=== PATIENT | male | born 1980 | race African-American/Black ===

== ENCOUNTER 2019-11-10 21:05 | Inpatient (IN) | payer BC, OTHER ==
[~2019-11-10] VITALS: Ht 172.7 cm; Wt 98.4 kg
[2019-11-10] MEDS ORDERED: SODIUM CHLORIDE 0.9% 1,000 ML IV ONE ×4 (22:39→23:22)
[2019-11-10] MEDS ORDERED: FAMOTIDINE 20MG/2ML VIAL IV STA (22:59)
[2019-11-10] MEDS ORDERED: ONDANSETRON HCL 4MG/2ML INJ IV STA (22:59)
[2019-11-10 23:18] LABS: BG BASE EXCESS -15.1 mmol/L (-2.0-2.0); BG CARBOXYHEMOGLOBIN 0.6 % (0.5-1.5); BG DEOXYHEMOGLOBIN 2.1 % (0.0-5.0); BG FRACTION INSPIRED OXYGEN 21; BG HCO3 ACT 9.2 mmol/L (22.0-26.0); BG METHEMOGLOBIN 0.1 % (0.0-1.5); BG OXYGEN SATURATION 97.9 % (92.0-98.5); BG OXYHEMOGLOBIN 97.2 % (94.0-97.0); BG PCO2 20.2 mmHg (35.0-45.0); BG PH 7.276 (7.350-7.450); BG PO2 108.7 mmHg (75.0-100.0); BG SAMPLE SITE RIGHT RADIAL; BG TOTAL HEMOGLOBIN 15.4 g/dL (12.0-18.0); BG VENT MODE ROOM AIR
[2019-11-10 23:22] LABS: BASOPHILS % 0.4 % (0.0-2.0); HEMATOCRIT. 46.8 % (42.0-52.0); HEMOGLOBIN. 15.3 g/dL (14.0-18.0); LYMPHOCYTES % 19.9 % (20.0-50.0); MEAN CORPUSCULAR HEMOGLOBIN 29.9 pg (28.0-32.0); MEAN CORPUSCULAR VOLUME 91.1 fL (80.0-94.0); MEAN PLATELET VOLUME 7.7 fl (7.4-10.4); MONOCYTES % 8.5 % (2.0-8.0); NEUTROPHILS % 71.2 % (40.0-76.0); PLATELET 266 x1000/uL (130-400); RED BLOOD CELL COUNT 5.14 mill/uL (4.7-6.1); RED CELL DISTRIBUTION WIDTH 14.4 % (11.6-14.6)
[2019-11-10 23:25] LABS: CLARITY URINE CLEAR (CLEAR); COLOR URINE YELLOW (YELLOW); KETONES URINE 4+ (NEGATIVE); LEUKOCYTE ESTERASE URINE NEGATIVE (NEGATIVE); NITRITE URINE NEGATIVE (NEGATIVE); OCCULT BLOOD URINE TRACE (NEGATIVE); PROTEIN URINE 1+ (NEGATIVE); SPECIFIC GRAVITY URINE 1.038 (1.005-1.030); UROBILINOGEN URINE 0.2 E.U./dL (0.2-1.0)
[2019-11-10] MEDS ORDERED: INSULIN REGULAR (DRIP) 100 UNITS in SODIUM CHLORIDE 0.9% 99 ML IV SCH (23:30)
[2019-11-10 23:31] LABS: CHLORIDE 104 mEq/L (98-107)
[2019-11-10 23:35] LABS: ETHANOL BLOOD < 10 mg/dL
[2019-11-10 23:38] LABS: *BARBITURATES SCREEN URINE NEGATIVE (NEGATIVE); *BENZODIAZEPINES SCREEN URINE NEGATIVE (NEGATIVE); *COCAINE SCREEN URINE NEGATIVE (NEGATIVE); METHADONE URINE SCREEN NEGATIVE (NEGATIVE)
[2019-11-10 23:39] LABS: *AMPHETAMINES SCREEN URINE NEGATIVE (NEGATIVE); BETA HYDROXYBUTYRATE 8.9 mMol/L (0.0-0.3); CANNABINOID URINE SCREEN NEGATIVE (NEGATIVE); OPIATES URINE SCREEN NEGATIVE (NEGATIVE); PHENCYCLIDINE URINE SCREEN NEGATIVE (NEGATIVE)
[2019-11-11] MEDS ORDERED: SODIUM CHLORIDE 0.9% 1,000 ML IV ONE (03:18)
[2019-11-11] MEDS ORDERED: DEXTROSE 5% WATER 1,000 ML IV ONE (03:18)
[2019-11-11 04:59] LABS: CHLORIDE 113 mEq/L (98-107)
[2019-11-11] MEDS ORDERED: POTASSIUM CHLORIDE 20MEQ TABLET SR PO ONE (05:45)
[2019-11-11 06:26] LABS: CHLORIDE 113 mEq/L (98-107)
[2019-11-11] MEDS ORDERED: NA PHOS,M-B/NA PHOS,DI-BA ENEMA 118ML PR PRN (07:15)
[2019-11-11] MEDS ORDERED: DIPHENHYDRAMINE 50MG/ML VIAL IV PRN (07:15)
[2019-11-11] MEDS ORDERED: BLOOD SUGAR DIAGNOSTIC STRIP TEST SCH (07:15)
[2019-11-11] MEDS ORDERED: DEXTROSE 50% WATER 50ML SYRINGE IV PRN ×3 (07:15)
[2019-11-11] MEDS ORDERED: IPRATROPIUM/ALBUTEROL 0.5-3(2.5)MG/3ML NEB NEB PRN (07:15)
[2019-11-11] MEDS ORDERED: ACETAMINOPHEN 325MG TABLET PO PRN (07:15)
[2019-11-11] MEDS ORDERED: MAGNESIUM/ALUMINUM HYDROXIDE/SIMETHICONE 30ML UDC PO PRN (07:15)
[2019-11-11] MEDS ORDERED: GUAIFENESIN 200MG/10ML SUGAR FREE UDC PO PRN (07:15)
[2019-11-11] MEDS ORDERED: LORAZEPAM 2MG/ML CPJ IV PRN (07:15)
[2019-11-11] MEDS ORDERED: DOCUSATE SODIUM 100MG CAPSULE PO PRN (07:15)
[2019-11-11 08:59] LABS: BG BASE EXCESS -8.6 mmol/L (-2.0-2.0); BG CARBOXYHEMOGLOBIN 0.6 % (0.5-1.5); BG DEOXYHEMOGLOBIN 1.8 % (0.0-5.0); BG FRACTION INSPIRED OXYGEN 21; BG HCO3 ACT 16.8 mmol/L (22.0-26.0); BG METHEMOGLOBIN 0.1 % (0.0-1.5); BG OXYGEN SATURATION 98.2 % (92.0-98.5); BG OXYHEMOGLOBIN 97.5 % (94.0-97.0); BG PCO2 34.4 mmHg (35.0-45.0); BG PH 7.306 (7.350-7.450); BG PO2 124.9 mmHg (75.0-100.0); BG SAMPLE SITE LEFT RADIAL; BG TOTAL HEMOGLOBIN 13.4 g/dL (12.0-18.0); BG VENT MODE ROOM AIR
[2019-11-11] MEDS ORDERED: FAMOTIDINE 20MG/2ML VIAL IV SCH (09:00)
[2019-11-11 09:16] LABS: CHLORIDE 113 mEq/L (98-107)
[2019-11-11] MEDS ORDERED: HYDRALAZINE 20MG/ML VIAL IV PRN (11:30)
[2019-11-11] MEDS: SODIUM CHLORIDE 0.45% 1,000 ML IV SCH (11:48)
[2019-11-11] MEDS: ONDANSETRON HCL 4MG/2ML INJ IV PRN ×2 (11:54→18:55)
[2019-11-11] MEDS: MORPHINE SULFATE 2 MG/ML CPJ (NOT FOR IM USE) IV PRN ×2 (11:56→18:55)
[2019-11-11 12:37] LABS: CHLORIDE 109 mEq/L (98-107)
[2019-11-11] MEDS: FAMOTIDINE 20MG/2ML VIAL IV SCH (14:38)
[2019-11-11] MEDS: CLONIDINE 0.1MG TABLET PO PRN (19:00)
[2019-11-11 19:26] LABS: CHLORIDE 105 mEq/L (98-107)
[2019-11-11 19:35] LABS: CREATINE KINASE 172 IU/L (39-308)
[2019-11-12] VITALS (65 sets, daily range): BP systolic 126–186; BP diastolic 76–117
[2019-11-12] MEDS: MORPHINE SULFATE 2 MG/ML CPJ (NOT FOR IM USE) IV PRN ×3 (00:29→12:24)
[2019-11-12] MEDS: SODIUM CHLORIDE 0.45% 1,000 ML IV SCH ×4 (01:04→19:39)
[2019-11-12 02:46] LABS: CHLORIDE 102 mEq/L (98-107)
[2019-11-12] MEDS ORDERED: DEXTROSE 50% WATER 50ML SYRINGE IV PRN ×3 (04:45→08:30)
[2019-11-12] MEDS: ONDANSETRON HCL 4MG/2ML INJ IV PRN (04:59)
[2019-11-12] MEDS: BLOOD SUGAR DIAGNOSTIC STRIP TEST SCH ×8 (05:00→21:02)
[2019-11-12] MEDS ORDERED: INSULIN REGULAR (DRIP) 100 UNITS in SODIUM CHLORIDE 0.9% 100 ML IV SCH (05:00)
[2019-11-12] MEDS: CLONIDINE 0.1MG TABLET PO PRN (05:29)
[2019-11-12 06:05] LABS: BASOPHILS % 0.3 % (0.0-2.0); EOSINOPHILS % 0.1 % (0.0-5.0); HEMOGLOBIN. 14.2 g/dL (14.0-18.0); MEAN CORPUSCULAR HEMOGLOBIN 29.8 pg (28.0-32.0); MEAN CORPUSCULAR VOLUME 88.1 fL (80.0-94.0); MEAN PLATELET VOLUME 7.6 fl (7.4-10.4); NEUTROPHILS % 52.6 % (40.0-76.0); PLATELET 231 x1000/uL (130-400); RED BLOOD CELL COUNT 4.76 mill/uL (4.7-6.1); RED CELL DISTRIBUTION WIDTH 13.9 % (11.6-14.6)
[2019-11-12 06:07] LABS: CHLORIDE 101 mEq/L (98-107)
[2019-11-12 06:22] LABS: LDL CHOLESTEROL 76 mg/dL (5-100)
[2019-11-12 06:24] LABS: CREATINE KINASE 134 IU/L (39-308); HDL CHOLESTEROL 60 mg/dL (40-59)
[2019-11-12] MEDS: SODIUM CHLORIDE 0.9% INJ 3ML FLUSH IVF SCH ×3 (06:33→22:25)
[2019-11-12] MEDS: INSULIN LISPRO 100 UNITS/ML SUBCUT SCH ×4 (08:20→21:02)
[2019-11-12] MEDS ORDERED: POTASSIUM CHLORIDE 20MEQ TABLET SR PO NR (08:30)
[2019-11-12] MEDS: ENOXAPARIN 30MG/0.3ML SYR SUBCUT SCH ×2 (09:07→20:43)
[2019-11-12] MEDS: FAMOTIDINE 20MG/2ML VIAL IV SCH ×2 (09:07→20:43)
[2019-11-12] MEDS: HYDRALAZINE 20MG/ML VIAL IV PRN ×2 (09:56→16:33)
[2019-11-12] MEDS: AMLODIPINE 5MG TABLET PO SCH (12:23)
[2019-11-12] MEDS: HYDROCODONE/ACETAMINOPHEN 10/325MG TABLET PO PRN (21:00)
[2019-11-13] VITALS (24 sets, daily range): BP systolic 112–169; BP diastolic 70–107
[2019-11-13] MEDS: SODIUM CHLORIDE 0.45% 1,000 ML IV SCH ×2 (04:51→21:24)
[2019-11-13] MEDS: SODIUM CHLORIDE 0.9% INJ 3ML FLUSH IVF SCH ×3 (05:15→21:05)
[2019-11-13] MEDS: HYDROCODONE/ACETAMINOPHEN 10/325MG TABLET PO PRN ×2 (06:25→21:28)
[2019-11-13 06:44] LABS: BASOPHILS % 0.1 % (0.0-2.0); CHLORIDE 100 mEq/L (98-107); EOSINOPHILS % 0.2 % (0.0-5.0); HEMATOCRIT. 43.8 % (42.0-52.0); HEMOGLOBIN. 14.5 g/dL (14.0-18.0); MEAN CORPUSCULAR HEMOGLOBIN 29.5 pg (28.0-32.0); MEAN CORPUSCULAR VOLUME 88.9 fL (80.0-94.0); NEUTROPHILS % 39.7 % (40.0-76.0); PLATELET 231 x1000/uL (130-400); RED BLOOD CELL COUNT 4.92 mill/uL (4.7-6.1); RED CELL DISTRIBUTION WIDTH 13.9 % (11.6-14.6)
[2019-11-13] MEDS: AMLODIPINE 5MG TABLET PO SCH (08:29)
[2019-11-13] MEDS: FAMOTIDINE 20MG/2ML VIAL IV SCH ×2 (08:29→21:04)
[2019-11-13] MEDS: ENOXAPARIN 30MG/0.3ML SYR SUBCUT SCH ×2 (08:29→21:24)
[2019-11-13] MEDS: INSULIN LISPRO 100 UNITS/ML SUBCUT SCH ×4 (08:30→21:25)
[2019-11-13] MEDS: BLOOD SUGAR DIAGNOSTIC STRIP TEST SCH ×4 (08:30→20:53)
[2019-11-13] MEDS ORDERED: POTASSIUM CHLORIDE 20MEQ TABLET SR PO NR (08:45)
[2019-11-13] MEDS: MORPHINE SULFATE 2 MG/ML CPJ (NOT FOR IM USE) IV PRN (17:04)
[2019-11-14] VITALS: BP 127/74
[2019-11-14 04:00] VITALS: BP 137/74
[2019-11-14] MEDS: BLOOD SUGAR DIAGNOSTIC STRIP TEST SCH ×4 (06:05→21:49)
[2019-11-14] MEDS: SODIUM CHLORIDE 0.45% 1,000 ML IV SCH ×2 (06:38→21:51)
[2019-11-14] MEDS: SODIUM CHLORIDE 0.9% INJ 3ML FLUSH IVF SCH ×3 (06:40→21:49)
[2019-11-14] MEDS: INSULIN LISPRO 100 UNITS/ML SUBCUT SCH ×4 (06:40→21:56)
[2019-11-14 07:42] LABS: CHLORIDE 100 mEq/L (98-107)
[2019-11-14 07:45] LABS: BASOPHILS % 0.4 % (0.0-2.0); EOSINOPHILS % 0.7 % (0.0-5.0); HEMATOCRIT. 42.5 % (42.0-52.0); HEMOGLOBIN. 14.2 g/dL (14.0-18.0); LYMPHOCYTES % 54.7 % (20.0-50.0); MEAN CORPUSCULAR HEMOGLOBIN 29.6 pg (28.0-32.0); MEAN CORPUSCULAR VOLUME 88.8 fL (80.0-94.0); MEAN PLATELET VOLUME 7.9 fl (7.4-10.4); MONOCYTES % 12.3 % (2.0-8.0); NEUTROPHILS % 31.9 % (40.0-76.0); PLATELET 233 x1000/uL (130-400); RED BLOOD CELL COUNT 4.78 mill/uL (4.7-6.1)
[2019-11-14 08:00] VITALS: BP 158/104
[2019-11-14] MEDS: FAMOTIDINE 20MG/2ML VIAL IV SCH ×2 (09:57→21:49)
[2019-11-14] MEDS: AMLODIPINE 10MG TABLET PO SCH (09:58)
[2019-11-14] MEDS: ENOXAPARIN 30MG/0.3ML SYR SUBCUT SCH ×2 (09:59→21:50)
[2019-11-14 12:00] VITALS: BP 152/94
[2019-11-14 17:01] VITALS: BP 107/70
[2019-11-14 20:00] VITALS: BP 128/80
[2019-11-15] VITALS: BP 130/89
[2019-11-15] MEDS: SODIUM CHLORIDE 0.45% 1,000 ML IV SCH (00:45)
[2019-11-15 04:00] VITALS: BP 126/87
[2019-11-15] MEDS: BLOOD SUGAR DIAGNOSTIC STRIP TEST SCH ×3 (06:28→16:45)
[2019-11-15] MEDS: SODIUM CHLORIDE 0.9% INJ 3ML FLUSH IVF SCH ×2 (06:28→14:14)
[2019-11-15] MEDS: INSULIN LISPRO 100 UNITS/ML SUBCUT SCH ×3 (06:30→17:52)
[2019-11-15 08:00] VITALS: BP 159/106
[2019-11-15] MEDS: FAMOTIDINE 20MG/2ML VIAL IV SCH (09:12)
[2019-11-15] MEDS: ENOXAPARIN 30MG/0.3ML SYR SUBCUT SCH (09:12)
[2019-11-15] MEDS: AMLODIPINE 10MG TABLET PO SCH (09:12)
[2019-11-15] MEDS: ONDANSETRON HCL 4MG/2ML INJ IV PRN (10:06)
[2019-11-15 12:00] VITALS: BP 140/93
[2019-11-15 16:00] VITALS: BP 120/69
[2019-11-15 18:17] VITALS: BP 120/69
== END 2019-11-15 19:02 | disposition home or self-care (01) | DRG 638 ==
LOC: ER 21:05 → EDBEDREQ 23:56 → EDBEDREQTM 23:56 → EDBEDREQ 11-11 00:13 → ENRESERV 11-12 02:39 → CVICU 11-12 04:25 → 5WST 11-13 10:56
PROVIDERS: ADMIT Internal Medicine; ATTEND Internal Medicine
DX: E11.10 Type 2 diabetes mellitus with ketoacidosis without coma (principal); N39.0 Urinary tract infection, site not specified; E86.0 Dehydration; Z79.84 Long term (current) use of oral hypoglycemic drugs
CPT/HCPCS: 36415; 36600; 76705; 80048; 80053; 80061; 80305; 80320; 81003; 82010; 82375; 82550; 82553; 82805; 82962; 84484; 85025; 93970; 99285; J0360; J1650; J1815; J2270; J2405; J3490; J7030; J7050; J7070; G0480

== ENCOUNTER 2019-12-17 10:11 | Inpatient (IN) | payer BC ==
[~2019-12-17] VITALS: Ht 172.7 cm; Wt 103.4 kg
[2019-12-17] MEDS ORDERED: SODIUM CHLORIDE 0.9% 1,000 ML IV ONE (10:39)
[2019-12-17] MEDS ORDERED: ONDANSETRON HCL 4MG/2ML INJ IV STA (10:39)
[2019-12-17] MEDS ORDERED: KETOROLAC 30MG/ML VIAL IV STA (10:49)
[2019-12-17 11:04] LABS: CLARITY URINE CLEAR (CLEAR); COLOR URINE DARK YELLOW (YELLOW); KETONES URINE 3+ (NEGATIVE); LEUKOCYTE ESTERASE URINE NEGATIVE (NEGATIVE); NITRITE URINE NEGATIVE (NEGATIVE); OCCULT BLOOD URINE NEGATIVE (NEGATIVE); PH URINE 5.5 (4.5-8.0); PROTEIN URINE 3+ (NEGATIVE); SPECIFIC GRAVITY URINE 1.042 (1.005-1.030)
[2019-12-17 11:09] LABS: BASOPHILS % 0.8 % (0.0-2.0); HEMATOCRIT. 46.5 % (42.0-52.0); HEMOGLOBIN. 15.7 g/dL (14.0-18.0); LYMPHOCYTES % 26.2 % (20.0-50.0); MEAN CORPUSCULAR HEMOGLOBIN 30.7 pg (28.0-32.0); PLATELET 483 x1000/uL (130-400); RED BLOOD CELL COUNT 5.11 mill/uL (4.7-6.1); RED CELL DISTRIBUTION WIDTH 14.6 % (11.6-14.6)
[2019-12-17 11:10] LABS: CHLORIDE 101 mEq/L (98-107)
[2019-12-17 11:19] LABS: BETA HYDROXYBUTYRATE 3.5 mMol/L (0.0-0.3)
[2019-12-17] MEDS ORDERED: POTASSIUM CHLORIDE 20MEQ TABLET SR PO ONE (12:15)
[2019-12-17] MEDS ORDERED: IOHEXOL-300 100 ML BOTTLE ONE (13:45)
[2019-12-17] MEDS ORDERED: HYDRALAZINE 20MG/ML VIAL IV ONE (17:00)
[2019-12-17] MEDS ORDERED: ONDANSETRON HCL 4MG/2ML INJ IV ONE (18:15)
[2019-12-17] MEDS ORDERED: CLONIDINE 0.1MG TABLET PO PRN (20:00)
[2019-12-17] MEDS ORDERED: MORPHINE SULFATE 2 MG/ML CPJ (NOT FOR IM USE) IV NR (20:00)
[2019-12-17] MEDS ORDERED: ACETAMINOPHEN 325MG TABLET PO PRN (20:00)
[2019-12-17] MEDS ORDERED: DEXTROSE 50% WATER 50ML SYRINGE IV PRN (20:00)
[2019-12-17] MEDS: BLOOD SUGAR DIAGNOSTIC STRIP TEST SCH (21:38)
[2019-12-17 21:40] VITALS: BP 180/115
[2019-12-17] MEDS: INSULIN LISPRO 100 UNITS/ML SUBCUT SCH (21:52)
[2019-12-17] MEDS: SODIUM CHLORIDE 0.9% 1,000 ML IV SCH (21:53)
[2019-12-17] MEDS: ONDANSETRON HCL 4MG/2ML INJ IV PRN (21:54)
[2019-12-17] MEDS: MORPHINE SULFATE 2 MG/ML CPJ (NOT FOR IM USE) IV PRN (21:54)
[2019-12-18] MEDS: METOCLOPRAMIDE HCL 10MG/2ML VIAL IV SCH ×4 (00:02→17:44)
[2019-12-18] MEDS: HYDRALAZINE 20MG/ML VIAL IV SCH ×4 (00:03→17:43)
[2019-12-18 00:29] VITALS: BP 163/102
[2019-12-18] MEDS ORDERED: METF-416 PO (02:40)
[2019-12-18 04:58] VITALS: BP 146/96
[2019-12-18] MEDS: BLOOD SUGAR DIAGNOSTIC STRIP TEST SCH ×4 (06:47→21:35)
[2019-12-18 06:52] LABS: BASOPHILS % 0.2 % (0.0-2.0); HEMATOCRIT. 39.5 % (42.0-52.0); HEMOGLOBIN. 13.4 g/dL (14.0-18.0); MEAN CORPUSCULAR HEMOGLOBIN 30.4 pg (28.0-32.0); MEAN CORPUSCULAR VOLUME 89.9 fL (80.0-94.0); MONOCYTES % 10.5 % (2.0-8.0); NEUTROPHILS % 58.3 % (40.0-76.0); PLATELET 461 x1000/uL (130-400); RED CELL DISTRIBUTION WIDTH 14.4 % (11.6-14.6)
[2019-12-18 07:26] LABS: CHLORIDE 105 mEq/L (98-107)
[2019-12-18 08:00] VITALS: BP 176/108
[2019-12-18] MEDS: INSULIN LISPRO 100 UNITS/ML SUBCUT SCH ×4 (08:28→21:34)
[2019-12-18] MEDS ORDERED: POTASSIUM CHLORIDE 20MEQ TABLET SR PO SCH (08:30)
[2019-12-18] MEDS: PANTOPRAZOLE SODIUM 40 MG/VIAL IV SCH (08:43)
[2019-12-18] MEDS: ONDANSETRON HCL 4MG/2ML INJ IV PRN ×2 (08:44→17:43)
[2019-12-18] MEDS: INSULIN GLARGINE UD 100 UNITS/ML SYR SUBCUT SCH ×2 (11:04→21:35)
[2019-12-18] MEDS: LOSARTAN POTASSIUM 100 MG TABLET PO SCH (11:07)
[2019-12-18] MEDS: SODIUM CHLORIDE 0.9% 1,000 ML IV SCH ×2 (11:08→21:36)
[2019-12-18 12:00] VITALS: BP 165/106
[2019-12-18] MEDS: MORPHINE SULFATE 2 MG/ML CPJ (NOT FOR IM USE) IV PRN ×2 (13:31→18:26)
[2019-12-18 16:00] VITALS: BP 166/101
[2019-12-18 20:00] VITALS: BP 161/99
[2019-12-18] MEDS: AMLODIPINE 5MG TABLET PO SCH (21:31)
[2019-12-18] MEDS: CLONIDINE 0.1MG TABLET PO SCH (21:32)
[2019-12-19] VITALS: BP 163/105
[2019-12-19] MEDS: HYDRALAZINE 20MG/ML VIAL IV SCH ×3 (00:08→12:54)
[2019-12-19] MEDS: METOCLOPRAMIDE HCL 10MG/2ML VIAL IV SCH ×3 (00:09→12:53)
[2019-12-19] MEDS: MORPHINE SULFATE 2 MG/ML CPJ (NOT FOR IM USE) IV PRN (00:09)
[2019-12-19 01:16] LABS: *BARBITURATES SCREEN URINE NEGATIVE (NEGATIVE); *BENZODIAZEPINES SCREEN URINE NEGATIVE (NEGATIVE); *COCAINE SCREEN URINE NEGATIVE (NEGATIVE); METHADONE URINE SCREEN NEGATIVE (NEGATIVE); OPIATES URINE SCREEN PRESUMTIVE POSITIVE (NEGATIVE); PHENCYCLIDINE URINE SCREEN NEGATIVE (NEGATIVE)
[2019-12-19 01:17] LABS: *AMPHETAMINES SCREEN URINE NEGATIVE (NEGATIVE); CANNABINOID URINE SCREEN NEGATIVE (NEGATIVE)
[2019-12-19 04:00] VITALS: BP 131/86
[2019-12-19] MEDS: CLONIDINE 0.1MG TABLET PO SCH ×2 (06:16→13:00)
[2019-12-19] MEDS: BLOOD SUGAR DIAGNOSTIC STRIP TEST SCH ×2 (06:54→12:43)
[2019-12-19] MEDS ORDERED: GLIPIZIDE 5MG TABLET PO SCH (07:20)
[2019-12-19 08:00] VITALS: BP 127/85
[2019-12-19] MEDS: INSULIN LISPRO 100 UNITS/ML SUBCUT SCH ×2 (08:02→12:53)
[2019-12-19] MEDS: LOSARTAN POTASSIUM 100 MG TABLET PO SCH (08:03)
[2019-12-19] MEDS: AMLODIPINE 5MG TABLET PO SCH (08:04)
[2019-12-19] MEDS: PANTOPRAZOLE SODIUM 40 MG/VIAL IV SCH (08:04)
[2019-12-19] MEDS ORDERED: GLIP10TA10 MT (08:51)
[2019-12-19] MEDS ORDERED: METO10TA3 MT (08:51)
[2019-12-19] MEDS ORDERED: HYDR100T26 MT (08:51)
[2019-12-19] MEDS ORDERED: CLON0.1T14 MT (08:51)
[2019-12-19] MEDS ORDERED: LOSA100T32 MT (08:51)
[2019-12-19] MEDS ORDERED: NIFE-32 MT (08:53)
[2019-12-19] MEDS: INSULIN GLARGINE UD 100 UNITS/ML SYR SUBCUT SCH (09:08)
[2019-12-19 12:06] VITALS: BP 135/91
[2019-12-19] MEDS: SODIUM CHLORIDE 0.9% 1,000 ML IV SCH (12:56)
[2019-12-19 15:39] VITALS: BP 136/80
[2019-12-19 16:24] VITALS: BP 136/90
[2019-12-20] MEDS ORDERED: PANTOPRAZOLE 40MG DR TABLET PO SCH (07:20)
== END 2019-12-19 16:35 | disposition home or self-care (01) | DRG 74 ==
LOC: ER 10:11 → 6WST 17:22 → ENRESERV 20:54
PROVIDERS: ADMIT Internal Medicine; ATTEND Internal Medicine
DX: E11.43 Type 2 diabetes mellitus with diabetic autonomic (poly)neuropathy (principal); E66.9 Obesity, unspecified; E87.6 Hypokalemia; I16.0 Hypertensive urgency; K31.84 Gastroparesis; I10 Essential (primary) hypertension; Z68.34 Body mass index [BMI] 34.0-34.9, adult; Z79.84 Long term (current) use of oral hypoglycemic drugs; Z71.3 Dietary counseling and surveillance
CPT/HCPCS: 36415; 71045; 74177; 76700; 80048; 80053; 80305; 81003; 82010; 82962; 83036; 84484; 85025; 93005; 96361; 96375; 96376; 99285; C9113; J0360; J1815; J1885; J2270; J2405; J2765; J7030; Q9967

== ENCOUNTER 2020-11-10 20:19 | Inpatient (IN) | payer BC ==
[~2020-11-10] VITALS: Ht 172.7 cm; Wt 104.3 kg
[~2020-11-10 20:19] MED LIST: GLIP10TA10 MT; HYDR100T26 MT; LOSA100T32 MT; METF-416 PO; METO10TA3 MT; NIFE-32 MT
[2020-11-10] MEDS ORDERED: SODIUM CHLORIDE 0.9% 1,000 ML IV ONE (21:00)
[2020-11-10 21:09] LABS: BASOPHILS % 0.2 % (0.0-2.0); HEMATOCRIT. 50.5 % (42.0-52.0); HEMOGLOBIN. 15.7 g/dL (14.0-18.0); LYMPHOCYTES % 7.4 % (20.0-50.0); MEAN CORPUSCULAR HEMOGLOBIN 29.5 pg (28.0-32.0); MEAN PLATELET VOLUME 8.6 fl (7.4-10.4); MONOCYTES % 7.8 % (2.0-8.0); NEUTROPHILS % 84.6 % (40.0-76.0); PLATELET 283 x1000/uL (130-400); RED BLOOD CELL COUNT 5.32 mill/uL (4.7-6.1)
[2020-11-10 21:13] LABS: CHLORIDE 100 mEq/L (98-107)
[2020-11-10 21:14] LABS: CLARITY URINE CLEAR (CLEAR); COLOR URINE YELLOW (YELLOW); KETONES URINE 4+ (NEGATIVE); LEUKOCYTE ESTERASE URINE NEGATIVE (NEGATIVE); NITRITE URINE NEGATIVE (NEGATIVE); OCCULT BLOOD URINE 1+ (NEGATIVE); PROTEIN URINE 2+ (NEGATIVE); SPECIFIC GRAVITY URINE 1.028 (1.005-1.030); UROBILINOGEN URINE 0.2 E.U./dL (0.2-1.0)
[2020-11-10 21:17] LABS: ETHANOL BLOOD < 10 mg/dL
[2020-11-10 21:29] LABS: *AMPHETAMINES SCREEN URINE NEGATIVE (NEGATIVE); CANNABINOID URINE SCREEN PRESUMTIVE POSITIVE (NEGATIVE); METHADONE URINE SCREEN NEGATIVE (NEGATIVE); OPIATES URINE SCREEN NEGATIVE (NEGATIVE); PHENCYCLIDINE URINE SCREEN NEGATIVE (NEGATIVE)
[2020-11-10 21:30] LABS: *BARBITURATES SCREEN URINE NEGATIVE (NEGATIVE); *BENZODIAZEPINES SCREEN URINE NEGATIVE (NEGATIVE); *COCAINE SCREEN URINE NEGATIVE (NEGATIVE)
[2020-11-10] MEDS ORDERED: SODIUM CHLORIDE 0.9% 1,000 ML IV STA (21:49)
[2020-11-10 22:55] LABS: BG BASE EXCESS -25.5 mmol/L (-2.0-2.0); BG CARBOXYHEMOGLOBIN 0.6 % (0.5-1.5); BG DEOXYHEMOGLOBIN 1.8 % (0.0-5.0); BG FRACTION INSPIRED OXYGEN 21; BG HCO3 ACT 2.6 mmol/L (22.0-26.0); BG METHEMOGLOBIN 0.3 % (0.0-1.5); BG OXYGEN SATURATION 98.2 % (92.0-98.5); BG OXYHEMOGLOBIN 97.3 % (94.0-97.0); BG PCO2 9.4 mmHg (35.0-45.0); BG PH 7.053 (7.350-7.450); BG PO2 148.6 mmHg (75.0-100.0); BG SAMPLE SITE RIGHT RADIAL; BG TOTAL HEMOGLOBIN 15.5 g/dL (12.0-18.0); BG VENT MODE ROOM AIR
[2020-11-10] MEDS ORDERED: INSULIN REGULAR (DRIP) 100 UNITS in SODIUM CHLORIDE 0.9% 100 ML IV ONE (23:00)
[2020-11-10 23:26] LABS: CHLORIDE 102 mEq/L (98-107)
[2020-11-10 23:32] LABS: PHOSPHORUS 4.9 mg/dL (2.5-4.9)
[2020-11-11 00:19] LABS: BETA HYDROXYBUTYRATE 12.4 mMol/L (0.0-0.3)
[2020-11-11 00:33] LABS: CHLORIDE 105 mEq/L (98-107)
[2020-11-11 00:41] LABS: PHOSPHORUS 4.5 mg/dL (2.5-4.9)
[2020-11-11] MEDS: SODIUM CHLORIDE 0.9% 1,000 ML IV SCH ×4 (02:00→17:00)
[2020-11-11 02:17] LABS: CHLORIDE 107 mEq/L (98-107)
[2020-11-11 02:23] LABS: PHOSPHORUS 3.5 mg/dL (2.5-4.9)
[2020-11-11] MEDS: PANTOPRAZOLE SODIUM 40 MG/VIAL IV SCH (08:32)
[2020-11-11] MEDS: DEXT 5%/0.45% NACL 1000ML 1,000 ML IV SCH ×2 (08:32→16:30)
[2020-11-11 08:50] LABS: CHLORIDE 112 mEq/L (98-107)
[2020-11-11 08:56] LABS: PHOSPHORUS 2.4 mg/dL (2.5-4.9)
[2020-11-11 16:36] LABS: CHLORIDE 113 mEq/L (98-107)
[2020-11-11 20:38] LABS: CHLORIDE 111 mEq/L (98-107)
[2020-11-12] MEDS ORDERED: CLONIDINE 0.1MG TABLET PO PRN (02:00)
[2020-11-12] MEDS ORDERED: AMLODIPINE 10MG TABLET PO SCH (02:00)
[2020-11-12 03:23] LABS: CHLORIDE 112 mEq/L (98-107)
[2020-11-12 04:50] LABS: BASOPHILS % 0.5 % (0.0-2.0); HEMATOCRIT. 43.3 % (42.0-52.0); HEMOGLOBIN. 14.1 g/dL (14.0-18.0); LYMPHOCYTES % 7.7 % (20.0-50.0); MEAN CORPUSCULAR HEMOGLOBIN 29.1 pg (28.0-32.0); MEAN CORPUSCULAR VOLUME 89.5 fL (80.0-94.0); MEAN PLATELET VOLUME 8.2 fl (7.4-10.4); MONOCYTES % 8.7 % (2.0-8.0); NEUTROPHILS % 83.1 % (40.0-76.0); PLATELET 217 x1000/uL (130-400); RED BLOOD CELL COUNT 4.84 mill/uL (4.7-6.1); RED CELL DISTRIBUTION WIDTH 14.2 % (11.6-14.6)
[2020-11-12 04:57] LABS: CHLORIDE 112 mEq/L (98-107)
[2020-11-12 08:46] LABS: CHLORIDE 111 mEq/L (98-107)
[2020-11-12] MEDS: PANTOPRAZOLE SODIUM 40 MG/VIAL IV SCH (09:09)
[2020-11-12] MEDS: LISINOPRIL 20MG TABLET PO SCH ×2 (09:09→22:01)
[2020-11-12] MEDS ORDERED: DEXTROSE 50% WATER 50ML SYRINGE IV PRN (09:15)
[2020-11-12] MEDS ORDERED: INSULIN GLARGINE UD 100 UNITS/ML SYR SUBCUT ONE (09:15)
[2020-11-12] MEDS ORDERED: POTASSIUM CHLORIDE 20MEQ TABLET SR PO NR (11:30)
[2020-11-12] MEDS: INSULIN GLARGINE UD 100 UNITS/ML SYR SUBCUT SCH ×2 (11:33→22:02)
[2020-11-12] MEDS: BLOOD SUGAR DIAGNOSTIC STRIP TEST SCH ×3 (11:56→21:00)
[2020-11-12] MEDS: INSULIN LISPRO 100 UNITS/ML SUBCUT SCH ×3 (12:01→22:03)
[2020-11-12 12:02] LABS: CHLORIDE 110 mEq/L (98-107)
[2020-11-12] MEDS: SODIUM CHLORIDE 0.9% 1,000 ML IV SCH ×2 (12:05→18:34)
[2020-11-12 16:33] VITALS: BP 142/89
[2020-11-12 18:15] LABS: CHLORIDE 109 mEq/L (98-107)
[2020-11-12 20:00] VITALS: BP 153/93
[2020-11-12 21:02] LABS: CHLORIDE 110 mEq/L (98-107)
[2020-11-12] MEDS: METOCLOPRAMIDE HCL 10MG TABLET PO SCH (22:01)
[2020-11-13] VITALS: BP 135/88
[2020-11-13 04:00] VITALS: BP 132/62
[2020-11-13] MEDS: INSULIN LISPRO 100 UNITS/ML SUBCUT SCH ×4 (06:25→22:13)
[2020-11-13] MEDS: BLOOD SUGAR DIAGNOSTIC STRIP TEST SCH ×4 (06:25→21:00)
[2020-11-13 08:00] VITALS: BP 168/100
[2020-11-13] MEDS: HYDRALAZINE HCL 100MG TABLET PO SCH ×3 (08:59→18:19)
[2020-11-13] MEDS: PANTOPRAZOLE SODIUM 40 MG/VIAL IV SCH (08:59)
[2020-11-13] MEDS ORDERED: LOSARTAN POTASSIUM 100 MG TABLET PO SCH (09:00)
[2020-11-13] MEDS: LISINOPRIL 20MG TABLET PO SCH ×2 (09:00→22:09)
[2020-11-13] MEDS: METFORMIN HCL 500MG TABLET PO SCH (09:00)
[2020-11-13] MEDS ORDERED: NIFEDIPINE XL 60MG TAB PO SCH (09:00)
[2020-11-13] MEDS: GLIPIZIDE 10MG TABLET PO SCH ×2 (09:01→18:20)
[2020-11-13] MEDS: METOCLOPRAMIDE HCL 10MG TABLET PO SCH ×4 (09:01→22:10)
[2020-11-13] MEDS: SODIUM CHLORIDE 0.9% 1,000 ML IV SCH ×3 (10:31→18:28)
[2020-11-13] MEDS: NIFEDIPINE XL 60MG TAB PO SCH (11:31)
[2020-11-13 12:12] VITALS: BP 112/72
[2020-11-13 16:00] VITALS: BP 115/81
[2020-11-13 17:50] LABS: CHLORIDE 108 mEq/L (98-107)
[2020-11-13] MEDS ORDERED: INSU100I28 SQ (19:38)
[2020-11-13 20:00] VITALS: BP 125/73
[2020-11-13] MEDS: ACETAMINOPHEN 325MG TABLET PO PRN (22:09)
[2020-11-13] MEDS: INSULIN GLARGINE UD 100 UNITS/ML SYR SUBCUT SCH (22:14)
[2020-11-14] VITALS: BP 133/77
[2020-11-14 00:06] LABS: CHLORIDE 107 mEq/L (98-107)
[2020-11-14 00:08] LABS: BASOPHILS % 0.3 % (0.0-2.0); EOSINOPHILS % 0.1 % (0.0-5.0); HEMATOCRIT. 41.8 % (42.0-52.0); HEMOGLOBIN. 13.6 g/dL (14.0-18.0); LYMPHOCYTES % 21.6 % (20.0-50.0); MEAN CORPUSCULAR HEMOGLOBIN 28.6 pg (28.0-32.0); MEAN PLATELET VOLUME 8.4 fl (7.4-10.4); PLATELET 222 x1000/uL (130-400); RED BLOOD CELL COUNT 4.75 mill/uL (4.7-6.1); RED CELL DISTRIBUTION WIDTH 14.7 % (11.6-14.6)
[2020-11-14 04:00] VITALS: BP 147/81
[2020-11-14] MEDS: INSULIN LISPRO 100 UNITS/ML SUBCUT SCH ×4 (06:14→21:49)
[2020-11-14] MEDS: BLOOD SUGAR DIAGNOSTIC STRIP TEST SCH ×4 (06:14→21:50)
[2020-11-14] MEDS: SODIUM CHLORIDE 0.9% 1,000 ML IV SCH ×5 (06:16→21:52)
[2020-11-14] MEDS ORDERED: POTASSIUM CHLORIDE INJ 40 MEQ in DEXT 5% WATER 500 ML IV ONE (06:45)
[2020-11-14 08:00] VITALS: BP 153/99
[2020-11-14] MEDS ORDERED: POTASSIUM CHLORIDE INJ 40 MEQ in DEXT 5% WATER 500 ML IV SCH (08:00)
[2020-11-14] MEDS: PANTOPRAZOLE SODIUM 40 MG/VIAL IV SCH (09:11)
[2020-11-14] MEDS: NIFEDIPINE XL 60MG TAB PO SCH (09:12)
[2020-11-14] MEDS: HYDRALAZINE HCL 100MG TABLET PO SCH ×3 (09:12→17:18)
[2020-11-14] MEDS: METFORMIN HCL 500MG TABLET PO SCH (09:12)
[2020-11-14] MEDS: GLIPIZIDE 10MG TABLET PO SCH ×2 (09:13→17:18)
[2020-11-14] MEDS: LISINOPRIL 20MG TABLET PO SCH ×2 (09:13→21:47)
[2020-11-14] MEDS: METOCLOPRAMIDE HCL 10MG TABLET PO SCH ×4 (09:13→21:47)
[2020-11-14] MEDS: ACETAMINOPHEN 325MG TABLET PO PRN ×2 (09:31→21:46)
[2020-11-14] MEDS: INSULIN GLARGINE UD 100 UNITS/ML SYR SUBCUT SCH ×2 (11:04→21:49)
[2020-11-14 12:00] VITALS: BP 143/89
[2020-11-14 15:44] LABS: BASOPHILS % 0.1 % (0.0-2.0); EOSINOPHILS % 0.3 % (0.0-5.0); HEMATOCRIT. 40.2 % (42.0-52.0); HEMOGLOBIN. 13.5 g/dL (14.0-18.0); LYMPHOCYTES % 24.1 % (20.0-50.0); MEAN CORPUSCULAR HEMOGLOBIN 29.8 pg (28.0-32.0); MEAN CORPUSCULAR VOLUME 88.4 fL (80.0-94.0); MEAN PLATELET VOLUME 8.3 fl (7.4-10.4); MONOCYTES % 13.2 % (2.0-8.0); NEUTROPHILS % 62.3 % (40.0-76.0); PLATELET 208 x1000/uL (130-400); RED BLOOD CELL COUNT 4.55 mill/uL (4.7-6.1); RED CELL DISTRIBUTION WIDTH 14.7 % (11.6-14.6)
[2020-11-14 15:51] LABS: CHLORIDE 107 mEq/L (98-107)
[2020-11-14 16:00] VITALS: BP 136/94
[2020-11-14 19:25] LABS: CLARITY URINE CLEAR (CLEAR); COLOR URINE YELLOW (YELLOW); KETONES URINE 3+ (NEGATIVE); LEUKOCYTE ESTERASE URINE NEGATIVE (NEGATIVE); NITRITE URINE NEGATIVE (NEGATIVE); OCCULT BLOOD URINE NEGATIVE (NEGATIVE); PROTEIN URINE 1+ (NEGATIVE); SPECIFIC GRAVITY URINE 1.027 (1.005-1.030)
[2020-11-14 20:00] VITALS: BP 145/94
[2020-11-15] VITALS: BP 132/87
[2020-11-15] MEDS: ACETAMINOPHEN 325MG TABLET PO PRN (02:00)
[2020-11-15] MEDS: SODIUM CHLORIDE 0.9% 1,000 ML IV SCH ×2 (02:01→11:13)
[2020-11-15 04:00] VITALS: BP 131/88
[2020-11-15] MEDS: INSULIN LISPRO 100 UNITS/ML SUBCUT SCH ×2 (05:11→12:40)
[2020-11-15] MEDS: BLOOD SUGAR DIAGNOSTIC STRIP TEST SCH ×2 (05:11→11:18)
[2020-11-15 06:28] LABS: CHLORIDE 107 mEq/L (98-107)
[2020-11-15 06:36] LABS: BASOPHILS % 0.2 % (0.0-2.0); EOSINOPHILS % 0.4 % (0.0-5.0); HEMATOCRIT. 39.2 % (42.0-52.0); LYMPHOCYTES % 39.1 % (20.0-50.0); MEAN CORPUSCULAR HEMOGLOBIN 29.5 pg (28.0-32.0); MEAN CORPUSCULAR VOLUME 88.9 fL (80.0-94.0); MEAN PLATELET VOLUME 8.4 fl (7.4-10.4); MONOCYTES % 14.2 % (2.0-8.0); NEUTROPHILS % 46.1 % (40.0-76.0); PLATELET 216 x1000/uL (130-400); RED BLOOD CELL COUNT 4.41 mill/uL (4.7-6.1); RED CELL DISTRIBUTION WIDTH 14.5 % (11.6-14.6)
[2020-11-15 08:00] VITALS: BP 144/88
[2020-11-15] MEDS ORDERED: FAMOTIDINE 20MG/2ML VIAL IV SCH (09:00)
[2020-11-15] MEDS: HYDRALAZINE HCL 100MG TABLET PO SCH ×2 (09:02→13:30)
[2020-11-15] MEDS: METOCLOPRAMIDE HCL 10MG TABLET PO SCH ×2 (09:02→13:30)
[2020-11-15] MEDS: NIFEDIPINE XL 60MG TAB PO SCH (09:02)
[2020-11-15] MEDS: METFORMIN HCL 500MG TABLET PO SCH (09:03)
[2020-11-15] MEDS: LISINOPRIL 20MG TABLET PO SCH (09:04)
[2020-11-15] MEDS: INSULIN GLARGINE UD 100 UNITS/ML SYR SUBCUT SCH (10:00)
[2020-11-15] MEDS: GLIPIZIDE 10MG TABLET PO SCH (11:12)
[2020-11-15 12:00] VITALS: BP 142/91
[2020-11-15] MEDS ORDERED: CEFTRIAXONE 1,000 MG in DEXTROSE 5% WATER 50 ML IV SCH (12:00)
[2020-11-15] MEDS ORDERED: POTASSIUM CHLORIDE 20MEQ TABLET SR PO NR ×2 (13:00→16:00)
[2020-11-15] MEDS ORDERED: POTASSIUM CHLORIDE INJ 40 MEQ in DEXT 5% WATER 250 ML IV NR (17:30)
[2020-11-26] MEDS ORDERED: METO10TA3 MT (13:17)
[2020-11-26] MEDS ORDERED: DOCU250C14 MT (13:17)
== END 2020-11-15 17:47 | disposition left against medical advice (07) | DRG 871 ==
LOC: ER 20:19 → MICUSO 22:08 → 8WST 11-12 14:30
PROVIDERS: ADMIT Internal Medicine; ATTEND Internal Medicine
DX: A41.9 Sepsis, unspecified organism (principal); E11.10 Type 2 diabetes mellitus with ketoacidosis without coma; G90.8 Other disorders of autonomic nervous system; E66.9 Obesity, unspecified; F12.90 Cannabis use, unspecified, uncomplicated; I10 Essential (primary) hypertension; D72.829 Elevated white blood cell count, unspecified; Z68.35 Body mass index [BMI] 35.0-35.9, adult; Z79.84 Long term (current) use of oral hypoglycemic drugs; Z79.899 Other long term (current) drug therapy
CPT/HCPCS: 36415; 36600; 71045; 80048; 80053; 80305; 80320; 81003; 82010; 82375; 82805; 82962; 83036; 83735; 83880; 84100; 84145; 84484; 85025; 85379; 93005; 96361; 99285; C9113; J0696; J1815; J3480; J3490; J7030; J7050; J7060; J8597; G0480